=== PATIENT | female | born 1980 | race Caucasian/White ===

== ENCOUNTER 2018-09-03 11:30 | Outpatient (RCR) | payer OTHER, SELFPAY ==
--- NOTE | 2018-06-24 12:46 | HP.PTEVAL ---
Patient's Visit Information MICHAEL DOE is a 38 year old F referred to Physical Therapy by NGOC MCKAY with a diagnosis of L ACL reconstruction. Date of Evaluation: 06/24/18 Physical Therapist: Satnam Connelly - Visit Plan Frequency: 2x /Week Duration: 6 Weeks Plan: Start with quad strengthening, ROM, gait progression and progress per Garcia Protocol. May use ice + vaso for edema managment. - Subjective Subjective: Pt. is here today for her initial evaluation with a L ACL reconstruction 10 days ago. Pt. reports stepping wrong on a wt. while doing crossfit and felt her knee give way. 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 Pt. has yet to return to work, but plans on doing so next week. Pt. denies N/T in either LE. Pt. does arrive today with crutches no brace. Pt. reprots working on some exercises at home, but mimimal. Pt. does ahve increased edema, but expected. Pt. is hopeful to increase strength, decerase pain and get back to all recreational activities without increase in symptoms. - Pain L knee Pain Intensity (Out of 10): 3 Pain Intensity Range: 1, 5 L foot Pain Intensity (Out of 10): 0 Comment: Plantar fascitis - Objective POSTURE: Pt. is able to stand without AD. Pt. has increased RLE wt. shift in stance. Pt. lacks TKE in stance. PALPATION: Pt. has mild pain with palpation of medial joint line and patellar tendon. pt. has normal healing incision without signs of infection. Negative homans sign. NEURO- All intact without issues. 2+ DTR bilateral achilles and patellar DTRs. ROM: R knee 0-0-132deg. L knee AROM 0-5-102deg, PROM 0-2-108deg. Normal hip ROM, normal HS length. MMT: RLE 5/5 throughout; LLE- ankle 5/5 throughout; knee- ext- Pt. has slight extensor lag with SLR (no overpressure completed), ext 4/5, abd 4/5. Core strenght- fair-. GAIT: Pt. ambulates normal with crutches without issues. Pt. lacks TKE during L stance phase without use of crutches. Pt. is able to tolerate full wt. bearing at this point in time. Decreased step length bilaterally, R worse than L. STAIRS: step to pattern with use of BHR. - Goals Goal 1:: Pt. to be I with HEP. Goal Time Frame: 4-6 Weeks Goal 2:: Pt. to complete SLR x20 without extensor lag. Goal Time Frame: 4-6 Weeks Goal 3:: Pt. to ambulate with normalized gait pattern without use of AD for unlimited distances. Goal Time Frame: 4-6 Weeks Goal 4:: Pt. have atleast 0-0-120deg of L knee ROM allowing for increased tolerance to all functional mobility. Goal Time Frame: 4-6 Weeks Goal 5:: Pt. to negotiate steps with reciprocal pattern without increase in symptoms and use of 1 HR. Goal Time Frame: 4-6 Weeks - Rehabilitation Potential Physical Therapy Diagnosis: Pt. presents today with a L ACL reconstruction with subsequent L knee hypomobility, weakness, difficulty with gait and decreased overall mobility.Pt. would benefit from PT to improve above limitations progress back to all recreational and work activities without limitations. Rehabilitation Potential: Excellent - Anticipated Interventions Patient/Client Instruction: Educate patient on: Condition, Plan of Care, Risk Factors, Benefits of Fitness Program For the Purpose of:: To facilitate caregiver knowledge, To improve self management, To prevent re-injury, To improve ability to perform tasks related to life management, To improve tolerance to ADL's Therapeutic Exercise to Include: Strength training, Power training, Endurance training, Balance training, Coordination, Postural training, Flexibilty training, Gait and locomotor training, Passive ROM, Active ROM, Dynamic Lumbar Stabilization For the Purpose of:: To decrease pain, To decrease swelling/inflammation, To increase ROM, To improve nutrient delivery to tissue, To increase oxygenation perfusion, To improve muscle performance and motor function, To increase tolerance to activity/condition/position, To improve gait and locomotor functions, To improve health of tissue, To decrease soft tissue restriction, To increase flexibility/ROM, To improve endurance, To improve balance Manual Therapy Techniques to Include: Mobilization, Passive ROM, Functional dry needling, Soft tissue mobilization For the Purpose of:: To decrease pain, To decrease swelling/inflammation, To increase ROM, To improve nutrient delivery to tissue Other electric stimulation: Yes Cryotherapy (ice pack, ice massage): Yes Thermo therapy (hot pack): Yes Ultrasound (thermal/non thermal): Yes Vasopneumatic device: Yes For the Purpose of:: To decrease pain, To decrease swelling/inflammation, To increase ROM, To improve nutrient delivery to tissue Thank you for the opportunity to evaluate your patient. For Medicare and Medicare HMO plans, please review the plan of care and approve it. It will need to be FAXED BACK to us at [phone] for Medicare purposes. Please let me know if there are questions or concerns regarding this plan of care. Physician Signature: Date:
--- NOTE | 2018-08-20 06:30 | HP.PTREVAL_ITS ---
NGOC MCKAY, It has been my pleasure to treat MICHAEL DOE over the last 8 visits for L ACL reconstruction. Please see the progress note below for an update on the physical therapy plan of care! Subjective: Pt. saw her physician who was pleased with progress. Pt. reports no pain or issues this date. Objective/Function: ROM- 0-0-132deg. MMT: LLE- ankle 5/5 throughout; knee- flexion 4/5, ext 4/5; hip- flexion 4/5, abd 4/5, ext 4/5. gait- Pt. has normal gait pattern without pain, TKE achieve. Slight quad functional weaknss with descending steps. Pt. tolerated all Pt without adverse reaction. Pt. cotnniues to slow some musculare weakness, but has full knee motion. Plan Plan: Pt. to be seen weekly or everyother week to progress HEP for LE strengthening. FOcus on eccentric strengthening at this point in time. Goals Goal 1:: Pt. to be I with HEP. Goal Time Frame: 4-6 Weeks Goal 2:: Pt. to complete SLR x20 without extensor lag. Goal Time Frame: 4-6 Weeks Goal 3:: Pt. to ambulate with normalized gait pattern without use of AD for unlimited distances. Goal Time Frame: 4-6 Weeks Goal 4:: Pt. have atleast 0-0-120deg of L knee ROM allowing for increased tolerance to all functional mobility. Goal Time Frame: 4-6 Weeks Goal 5:: Pt. to negotiate steps with reciprocal pattern without increase in symptoms and use of 1 HR. Goal Time Frame: 4-6 Weeks Anticipated Interventions Patient/Client Instruction: Educate patient on: Condition, Plan of Care, Risk Factors, Benefits of Fitness Program For the Purpose of:: To facilitate caregiver knowledge, To improve self management, To prevent re-injury, To improve ability to perform tasks related to life management, To improve tolerance to ADL's Therapeutic Exercise to Include: Strength training, Power training, Endurance training, Balance training, Coordination, Postural training, Flexibilty training, Gait and locomotor training, Passive ROM, Active ROM, Dynamic Lumbar S tabilization For the Purpose of:: To decrease pain, To decrease swelling/inflammation, To increase ROM, To improve nutrient delivery to tissue, To increase oxygenation perfusion, To improve muscle performance and motor function, To increase tolerance to activity/condition/position, To improve gait and locomotor functions, To improve health of tissue, To decrease soft tissue restriction, To increase flexibility/ROM, To improve endurance, To improve balance Manual Therapy Techniques to Include: Mobilization, Passive ROM, Functional dry needling, Soft tissue mobilization For the Purpose of:: To decrease pain, To decrease swelling/inflammation, To increase ROM, To improve nutrient delivery to tissue Other electric stimulation: Yes Cryotherapy (ice pack, ice massage): Yes Thermo therapy (hot pack): Yes Ultrasound (thermal/non thermal): Yes Vasopneumatic device: Yes For the Purpose of:: To decrease pain, To decrease swelling/inflammation, To increase ROM, To improve nutrient delivery to tissue Please do not hesitate to contact me at [phone] by phone or if you have questions or concerns regarding this new plan of care! Sincerely, ANJANA JacobsonT
--- NOTE | 2018-09-03 18:05 | HP.PTREVAL ---
NGOC MCKAY, It has been my pleasure to treat MICHAEL DOE over the last 11 visits for L ACL reconstruction. Please see the progress note below for an update on the physical therapy plan of care! Subjective: Pt. is here today. She followed up with her physician about her patellar issues. Physician reports that she has patellar tendonitis. Physician wrote another script for Pt x2 per week for 8 weeks. Objective/Function: Pt. has full ROM of L knee without increas in symptoms. She does have increased tightness of quad musculature. Pt. has tenderness along patellar tendon. No medial or lateral joint pain. Pt. has no ligament laxity throughout her knee. Pt. does not appear to have any meniscal pain. MMT: L knee- flexion 5-/5, flexion 4+/5. L hip- flexion 4/5,abd 4+/5, ext 4+/5. GAIT: Pt. has normal gait pattern without increase in symptoms. STAIRS: PT. has slight functional weakness noted with descending steps. Plan Plan: Address L patellar tendonitis with US, quad stretching, ionto. Cont. to progress quad strengthening Goals Goal 1:: Pt. to be I with HEP. Goal Time Frame: 4-6 Weeks Goal Progress: Progressing Goal 2:: Pt. to complete SLR x20 without extensor lag. NEW GOAL: Pt. have 5/5 strength throughout LLE. Goal Time Frame: 4-6 Weeks Goal Progress: Progressing Goal 3:: Pt. to ambulate with normalized gait pattern without use of AD for unlimited distances. NEW GOAL: Pt. to run with normalized pattern without increase in symptoms. Goal Time Frame: 4-6 Weeks Goal Progress: Progressing Goal 4:: Pt. have atleast 0-0-120deg of L knee ROM allowing for increased tolerance to all functional mobility. Goal Time Frame: 4-6 Weeks Goal Progress: Goal Met Goal 5:: Pt. to negotiate steps with reciprocal pattern without increase in symptoms and use of 1 HR. Goal Time Frame: 4-6 Weeks Goal Progress: Progressing Goal 6:: Pt. to have decreased patellar tendon pain to 0-1/10 with all functional mobility. Anticipated Interventions Patient/Client Instruction: Educate patient on: Condition, Plan of Care, Risk Factors, Benefits of Fitness Program For the Purpose of:: To facilitate caregiver knowledge, To improve self management, To prevent re-injury, To improve ability to perform tasks related to life management, To improve tolerance to ADL's Therapeutic Exercise to Include: Strength training, Power training, Endurance training, Balance training, Coordination, Postural training, Flexibilty training, Gait and locomotor training, Passive ROM, Active ROM, Dynamic Lumbar Stabilization For the Purpose of:: To decrease pain, To decrease swelling/inflammation, To increase ROM, To improve nutrient delivery to tissue, To increase oxygenation perfusion, To improve muscle performance and motor function, To increase tolerance to activity/condition/position, To improve gait and locomotor functions, To improve health of tissue, To decrease soft tissue restriction, To increase flexibility/ROM, To improve endurance, To improve balance Manual Therapy Techniques to Include: Mobilization, Passive ROM, Functional dry needling, Soft tissue mobilization For the Purpose of:: To decrease pain, To decrease swelling/inflammation, To increase ROM, To improve nutrient delivery to tissue Other electric stimulation: Yes Cryotherapy (ice pack, ice massage): Yes Thermo therapy (hot pack): Yes Ultrasound (thermal/non thermal): Yes Vasopneumatic device: Yes For the Purpose of:: To decrease pain, To decrease swelling/inflammation, To increase ROM, To improve nutrient delivery to tissue Please do not hesitate to contact me at [phone] by phone or if you have questions or concerns regarding this new plan of care! Sincerely, Satnam Connelly DPT
--- NOTE | 2018-11-11 11:41 | HP.PT.NRP ---
HP - Discharge Summary (1) - Patient Information MICHAEL DOE was seen in my office for initial evaluation on 06/13/18. The following Plan of Care was established for this patient: Initial Frequency: 2x /Week Initial Duration: 6 Weeks - Anticipated Interventions Patient/Client Instruction: Educate patient on: Condition, Plan of Care, Risk Factors, Benefits of Fitness Program For the Purpose of:: To facilitate caregiver knowledge, To improve self management, To prevent re-injury, To improve ability to perform tasks related to life management, To improve tolerance to ADL's Therapeutic Exercise to Include: Strength training, Power training, Endurance training, Balance training, Coordination, Postural training, Flexibilty training, Gait and locomotor training, Passive ROM, Active ROM, Dynamic Lumbar Stabilization For the Purpose of:: To decrease pain, To decrease swelling/inflammation, To increase ROM, To improve nutrient delivery to tissue, To increase oxygenation perfusion, To improve muscle performance and motor function, To increase tolerance to activity/condition/position, To improve gait and locomotor functions, To improve health of tissue, To decrease soft tissue restriction, To increase flexibility/ROM, To improve endurance, To improve balance Manual Therapy Techniques to Include: Mobilization, Passive ROM, Functional dry needling, Soft tissue mobilization For the Purpose of:: To decrease pain, To decrease swelling/inflammation, To increase ROM, To improve nutrient delivery to tissue Other electric stimulation: Yes Cryotherapy (ice pack, ice massage): Yes Thermo therapy (hot pack): Yes Ultrasound (thermal/non thermal): Yes Vasopneumatic device: Yes For the Purpose of:: To decrease pain, To decrease swelling/inflammation, To increase ROM, To improve nutrient delivery to tissue This patient was last seen in our office 09/03/18. Pertinent comments regarding their Physical therapy will appear below: Pt. was treated for her ACL reconstruction. Pt. was doing well and progrssing with ROM and strengthening as exepcted. Pt. has not been seeen in ~2.5 months and will be DC from PT at this point intime. At this point I will be discontinuing this patient from physical therapy. I would be happy to see this patient again in the future if found appropriate by the physician. Thank you! Satnam Connelly DPT
== END 2018-09-03 19:00 | disposition home or self-care (01) ==
LOC: PT 11:30
DX: S83.512D Sprain of anterior cruciate ligament of left knee, subsequent encounter (principal)
CPT/HCPCS: 97016; 97110; 97161; 97530

== ENCOUNTER → 2019-01-09 15:03 | Outpatient (CLI) | payer OTHER, SELFPAY ==
[2019-01-09 17:24] LABS: Rubella IgG 272.2 IU/mL
[2019-01-13 11:50] LABS: HEPATITIS B SURFACE AG Negative (Negative); Mumps Antibody,IgG 68.6 AU/mL (Immune >10.9); V-Zoster IgG (Immunity) 277 index (Immune >165)
== END ==
DX: Z01.84 Encounter for antibody response examination (principal)
CPT/HCPCS: 36415; 86735; 86762; 86765; 86787; 87340

== ENCOUNTER → 2020-06-01 14:13 | Outpatient (CLI) | payer OTHER, SELFPAY ==
[2020-06-01 15:41] LABS: Free T3 2.9 pg/mL (2.18-3.98); T4 Free Direct 1.03 ng/dL (0.76-1.46)
[2020-06-08 16:08] LABS: Thyroxin Bind Glob (TBG) 15 ug/mL (13-39)
[2020-06-09 08:43] LABS: Anti-Thyroglobulin AB < 1.0 IU/mL (0.0-0.9); T3 Reverse 12.5 ng/dL (9.2-24.1); Thyroid Peroxidase AB < 9 IU/mL (0-34)
[2020-06-09 08:44] LABS: Thyroglobulin, Serum Qt. 4.5 ng/mL (1.5-38.5)
== END ==
DX: R53.83 Other fatigue (principal)
CPT/HCPCS: 36415; 82533; 84432; 84439; 84442; 84481; 84482; 86376; 86800

== ENCOUNTER → 2020-09-30 14:55 | Outpatient (CLI) | payer OTHER, SELFPAY ==
[2020-09-30 15:54] LABS: Progesterone Level 10.49 ng/mL (See Comment)
[2020-09-30 15:58] LABS: Estradiol 51.4 pg/mL; Follicle Stimulating Hormone 2.3 mIU/mL; Free T3 2.4 pg/mL (2.18-3.98); T4 Free Direct 0.84 ng/dL (0.76-1.46); Thyroid Stim Hormone (TSH) 1.23 uIU/mL (0.358-3.74)
== END ==
DX: R63.5 Abnormal weight gain (principal)
CPT/HCPCS: 36415; 82670; 83001; 84144; 84439; 84443; 84481

== ENCOUNTER 2021-06-09 15:30 | Outpatient (RCR) | payer OTHER, SELFPAY ==
--- NOTE | 2021-05-22 09:44 | HP.PTEVAL_ITS ---
Patient's Visit Information MICHAEL DOE is a 41 year old F referred to Physical Therapy by VERENA SORENSON with a diagnosis of Rt. Achilles Tendon strain, Achilles tendon resection. Date of Evaluation: 05/17/21 Physical Therapist: Satnam Connelly DPT - Visit Plan Frequency: 2x /Week Duration: 4 Weeks Plan: Start with light stretching, Active ROm progressing to strengthening. Once able to add in CKC strengthening in pain free movements. May add manual therapy to aid in tissue recovery and symptom management at plantar surface of calcaneus. - Subjective Pt. is here today for her initial evaluation with diagnosis of Rt. Achilles Tendon strain. She reports having surgery for an Achilles tendon resection with shaving down bone spurring of her calcaneus. Pt. arrives today in normal shoes without having major issues. She does report some slight pain at posterior calcaneus and at Achilles tendon. She reports walking without issues. Pt. denies N/T. Pt. reports having some stiffness with walking, but overall doing well. She is scheduled to have her L foot done in ~6 weeks. Pt. is also having a prophylactic masectomy before the end of the year. Pt. is hopeful to get back to all recreational activities which included power lifting without limitations. Pt. reports having 4/10 pain currently, mostly at the bottom of her heel, minimal pain at Achilles tendon. - Pain R heel Pain Intensity (Out of 10): 4 Pain Intensity Range: 0, 6 R Achilles Pain Intensity (Out of 10): 1 Pain Intensity Range: 0, 4 - Objective POSTURE: Pt. has good posture in stance. No lateral wt. shifting noted. Pt. is able to stand and bear wt. without AD. PALPATION: Pt. has well healed incision at Achilles and plantar fascia region. Pt. has increased tenderness at plantar surface of calcaneus, but minimal pain with rest of palpation. NEURO: normal throughout. ROM: R ankle: PF 47deg, DF 16deg, INV 16deg, EVR 16deg. Knee: normal ROM throughout. MMT: L ankle 5/5 throughout. R ankle: PF 4/5, DF 4+/5, INV 4/5, EVR 4+/5; knee 5-/5. hip: 5/5 throughout except 4/5 hip abd. GAIT: Pt. ambulates with slight antalgic pattern during R stance phase and pre swing phase on R side. - Balance/Special Test Scores Lower Extremity Functional Score: 63 - Goals Goal 1:: LTG: Pt. to be I with HEP. Goal Time Frame: 4-6 Weeks Goal 2:: STG: pt. to have increased ROM of R ankle to full with out increase in symptoms. Goal Time Frame: 2-4 Weeks Goal 3:: STG: Pt. to tolerate work day with 0-2/10 pain in R ankle. Goal Time Frame: 2-4 Weeks Goal 4:: LTG: pt. to ambulate unlimited distances without increase in symptoms with normalized gait pattern. Goal Time Frame: 4-6 Weeks Goal 5:: LTG: Pt. have increased R ankle strength to 5/5 throughout. Goal Time Frame: 4-6 Weeks Goal 6:: LTG: Pt. to negotiate 1 flight of steps without increase in symptoms with normal pattern and 0-1/10 pain in R ankle. Goal Time Frame: 4-6 Weeks - Rehabilitation Potential Physical Therapy Diagnosis: Pt. has signs and symptoms consistent with Achilles tendon resection. Pt. did have surgery for Achilles tendon resection. Pt. has subsequent hypomobility, weakness, difficulty with walking. Pt. would benefit from PT to address the above limitations in order to get back to all work and recreational activities without limitations. Rehabilitation Potential: Excellent - Anticipated Interventions Patient/Client Instruction: Educate patient on: Condition, Plan of Care, Risk Factors, Benefits of Fitness Program For the Purpose of:: To foster healthy habits, To improve decision making, To facilitate caregiver knowledge, To improve self management, To prevent re- injury, To improve ability to perform tasks related to life management, To improve tolerance to ADL's Therapeutic Exercise to Include: Strength training, Power training, Endurance training, Balance training, Coordination, Postural training, Flexibilty training, Gait and locomotor training, Passive ROM, Active ROM For the Purpose of:: To decrease pain, To increase ROM, To improve nutrient delivery to tissue, To increase oxygenation perfusion, To improve muscle performance and motor function, To improve ability to perform ADL's, To increase tolerance to activity/condition/position, To improve performance and independence with ADL's, To decrease level of supervision to perform tasks, To improve ability of physical actions for home/community/work/leisure, To improve gait and locomotor functions, To improve health of tissue, To decrease soft tissue restriction, To increase flexibility/ROM, To improve balance Manual Therapy Techniques to Include: Mobilization, Soft tissue mobilization For the Purpose of:: To decrease pain, To decrease swelling/inflammation, To increase ROM, To improve nutrient delivery to tissue Thank you for the opportunity to evaluate your patient. For Medicare and Medicare HMO plans, please review the plan of care and approve it. It will need to be FAXED BACK to us at [phone] for Medicare purposes. For Medicare only, by signing this I certify the plan of care. Please let me know if there are questions or concerns regarding this plan of care. Physician Signature: Date:
--- NOTE | 2021-06-12 13:54 | HP.PTDCSUM ---
It has been my pleasure to treat MICHAEL THORNTON LABOR referred by VERENA SORENSON, with the diagnosis of Rt. Achilles Tendon strain, Achilles tendon resection for a total of 7 visit(s). Discharge Date: 06/09/21 Please see the following information for a summary of their discharge status. Subjective: Pt. reports I am doing okay, still a little sore, but not too bad. Pt. is to have L Achilles surgery next week. She reports being 70% better overall. She is back to doing some gym related exercises,but avoiding quick forceful calf related activities. R heel Pain Intensity (Out of 10): 0 R Achilles Pain Intensity (Out of 10): 2 L achilles Pain Intensity (Out of 10): 4 % Improvement: 70 Objective/Function: Pt. did well with PT this date. Pt. has really good ROM, and 5-/5 strength. She still has some pain in her heel with initial contact. She still has the increased tissue at mid achilles tendon, but still has good strength. pt. still has slight antalgic gait pattern, bilaterally. Pt. has difficulty with heel raises as well. I would like her to continue to strengthening as she has her other surgery and will be non wbing on her LLE. Goal 1:: LTG: Pt. to be I with HEP. Goal Progress: Goal Met Goal 2:: STG: pt. to have increased ROM of R ankle to full with out increase in symptoms. Goal Progress: Goal Met Goal 3:: STG: Pt. to tolerate work day with 0-2/10 pain in R ankle. Goal Progress: Progressing Goal 4:: LTG: pt. to ambulate unlimited distances without increase in symptoms with normalized gait pattern. Goal Progress: Progressing Goal 5:: LTG: Pt. have increased R ankle strength to 5/5 throughout. Goal Progress: Progressing Goal 6:: LTG: Pt. to negotiate 1 flight of steps without increase in symptoms with normal pattern and 0-1/10 pain in R ankle. Goal Progress: Progressing Plan: Pt. to be DC from PT as she is having surgery on her L Achilles next week. Discharge Comments: Pt. will be DC from PT at this point in time. Pt. still has some increased pain and R calf weakness (5-/5). Pt. to work on eccentric exercises and banded exercises. Pt. consents. If there are questions or concerns regarding this patient's physical therapy, please feel free to call me at [phone]. Thank you for the referral of this patient. Sincerely, Satnam Connelly, ANJANAT Balance/Gait/Functional tests - Balance/Special Test Scores Lower Extremity Functional Score: 70
== END 2021-06-09 19:00 | disposition home or self-care (01) ==
LOC: PT 15:30
DX: S86.011D Strain of right Achilles tendon, subsequent encounter (principal)
CPT/HCPCS: 97035; 97110; 97140; 97161

== ENCOUNTER → 2022-02-23 | Outpatient (CLI) | payer OTHER, SELFPAY ==
[2022-02-23 11:10] LABS: Absolute Lymphocyte Count 2.35 X10^3/uL (0.83-4.51); Absolute Neutrophil Count 5.4 X10^3/uL (2.0-7.7); Basophil# 0.05 X10^3/uL; Basophil% 0.6 % (0-1); Eosinophil# 0.11 X10^3/uL; Eosinophils% 1.3 % (0-5); Hematocrit 38.5 % (37-47); Hemoglobin 12.1 g/dL (12.0-15.0); Lymphocyte # 2.35 X10^3/ul (0.83-4.51); Lymphocyte % 27.6 % (19-41); Mean Corp Hgb Conc 31.4 g/dL (32-36); Mean Corpuscular Hgb 25.2 pg (27.0-32.0); Mean Platelet Vol. 9.7 fl (6.2-12.0); Monocyte# 0.52 X10^3/uL; Monocyte% 6.1 % (0-10); NRBC Flagged by Analyzer 0 % (0-5); Neutrophil # 5.43 X10^3/uL (2.7-7.7); Neutrophil % 63.9 % (47-70); Platelet Count 308 K/mm3 (150-450); RBC Distribution Width CV 15.9 % (11.6-14.6); RBC Distribution Width SD 45.7 fl (35.1-43.9); Red Blood Count 4.81 M/mm3 (4.2-5.4); White Blood Count 8.5 K/mm3 (4.4-11.0)
[2022-02-23 11:16] LABS: Hemoglobin A1c 5.7 % (3.8-5.6)
[2022-02-23 11:19] LABS: AST(SGOT) 17 U/L (15-37); Alanine Aminotransfer ALT/SGPT 20 U/L (13-56); Albumin, Serum 3.4 g/dL (3.2-5.0); Alkaline Phosphatase 59 U/L (45-117); Anion Gap 5 (5-15); BUN 13 mg/dL (7-18); BUN/Creat Ratio 16.5 RATIO (10-20); Bilirubin, Direct 0.16 mg/dL (0.00-0.30); Calcium,Total 8.6 mg/dL (8.5-10.1); Chloride 106 mmol/L (98-107); Cholesterol 190 mg/dL (200); Creatinine, Serum 0.79 mg/dL (0.55-1.02); EST Glomerular Filtration Rate 84 mL/min (>60); Est Glom Filt Rate - Afr Amer 102 mL/min (>60); Globulin 3.7 g/dL (2.2-4.2); Glucose 83 mg/dL (74-106); High Density Lipoprotein 47 mg/dL; Potassium 3.9 mmol/L (3.5-5.1); Protein, Total 7.1 g/dL (6.4-8.2); Sodium Level 139 mmol/L (136-145); T4 Free Direct 0.91 ng/dL (0.76-1.46); Triglycerides 100 mg/dL; Very Low Density Lipoprotein 20 mg/dL (5-40)
== END | disposition home or self-care (01) ==
LOC: LAB 09:45
DX: Z13.220 Encounter for screening for lipoid disorders (principal); R73.9 Hyperglycemia, unspecified; R53.83 Other fatigue
CPT/HCPCS: 36415; 80048; 80061; 80076; 83036; 84439; 84443; 85025

== ENCOUNTER → 2023-05-28 | Outpatient (CLI) | payer OTHER, SELFPAY ==
--- NOTE | 2023-05-28 10:32 | BD_ITS ---
STUDY: DUAL ENERGY X-RAY ABSORPTIOMETRY / DXA REASON FOR EXAM: Female, 43 years old. V76.12ScreeningBONE DENSITY REASON FOR EXAM -- FOR OSTEOPOROSIS TECHNIQUE: Bone Mineral Density (BMD) measurements of lumbar spine and bilateral hips were obtained. COMPARISON: None. FINDINGS: Lumbar Spine (L1-L4): g/cm2 (1.195) / T-score (1.3) / Z-score (1.8) Findings are suggestive of normal bone density with a low fracture risk. Left Femur Total: g/cm2 (0.882) / T-score (-0.5) / Z-score (-0.2) Left Femoral Neck: g/cm2 (0.735) / T-score (-1.0) / Z-score (-0.6) Right Femur Total: g/cm2 (0.916) / T-score (-0.2) / Z-score (0.1) Right Femoral Neck: g/cm2 (0.721) / T-score (-1.2) / Z-score (-0.8) BD/Dexa Bone Density Study IMPRESSION: The patient is considered osteopenic as outlined below according to World Phillip Organization (WHO) criteria with a low fracture risk. Reference Information: The T-score is the number of standard deviations above or below the standard which is normal for young adults at their peak bone mineral density. The World Health Organization (WHO) interprets the T-scores as follows: Above -1 Normal bone density Between -1 and -2.5 Osteopenia Equal to / or below -2.5 Osteoporosis As a practical clinical guideline, osteopenia may be graded as follows: Mild -1 through -1.5 Moderate -1.6 through -2.0 Severe -2.1 through -2.4 The Z-score is the number of standard deviations above or below age-matched controls. A Z-score of less than -1.5 would be considered abnormal. References: 1. NIH Osteoporosis and Related Bone Diseases www osteo.org 2. International Society for Clinical Densitometry www iscd.org 3. National Osteoporosis Foundation www nof.org Electronically Signed: Brady Mayers MD at 8:40 EDT ,
== END | disposition home or self-care (01) ==
LOC: OPBD 10:25
DX: Z13.820 Encounter for screening for osteoporosis (principal)
CPT/HCPCS: 77080

== ENCOUNTER → 2023-05-29 | Outpatient (CLI) | payer SELFPAY | END | disposition home or self-care (01) | PROVIDERS: Visit Provider Family Medicine | DX: Z13.820 Encounter for screening for osteoporosis (principal) | CPT/HCPCS: 76499 ==

== ENCOUNTER 2023-07-26 09:43 | Day surgery (SDC) | payer OTHER, SELFPAY ==
[2023-07-26] VITALS (7 sets, daily range): BP systolic 87–101; BP diastolic 59–72; PULSE 68–79; RESP 14–18; TEMP 36.7–37; O2SAT 94–100; BMI 26.5
--- NOTE | 2023-07-26 09:50 | PCM.HP.BLA ---
History and Physical Date of Admission: 07/26/23 Visit Reasons: BLOOD CLOTS/RECTAL BLEEDING Chief Complaint: blood clots/ rectal bleeding Is patient in pain?: No Allergies No Known Allergies Allergy (Unverified 07/23/23 13:56) Medications thyroid (pork) 30 mg tablet ([place] Thyroid) 30 mg PO DAILY 07/23/23 [History Confirmed 07/23/23] tirzepatide (weight loss) 2.5 mg/0.5 mL subcutaneous pen injector 2.5 mg subcut QWEEK 07/23/23 [History Confirmed 07/23/23] [facility] Surgical History History of prophylactic mastectomy of both breasts Hx of exploratory laparotomy S/P ACL reconstruction Family History (Updated 07/23/23 @ 13:54 by Nhung Sheppard LPN) Mother Breast cancer Diabetes Thyroid disorderFather CancerGrandmother Cancer Diabetes Hypertension Social History (Updated 07/23/23 @ 13:55 by Nhung Sheppard LPN) Smoking Status: Former smoker alcohol intake: never substance use type: does not use HPI HPI HPI: 43-year-old female is being referred to assist with an episode of rectal bleeding with bright red blood and clots. She states about 3 weeks ago she had a significant urinary tract infection and she placed herself on Bactrim therapy. She then felt bloated full constipated. She had an episode where she had passing blood and clots per rectum. That was 1 spell. No particular pain with that. She then has developed some bilateral lower quadrant tenderness and she wonders whether she could additionally have [employer] endometrial disease. She has had previous history of endometriosis with laparoscopy 5 different times for ablation. First couple times were for pain and then the last couple times were to assist with fertility. Most recent episode was 2014. Since that time 2019 after she had multiple genetic markers she had prophylactic bilateral mastectomies with TRAM flap. She is to see her [facility] CALL CENTER REPRESENTATIVE in 2 days. She is not on any anticoagulant. 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 Works at [employer] and was to [place]. 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 ROS General General: No weight change, appetite, fatigue, colon cancer, breast cancer or weakness HEENT HEENT: No difficulty swallowing, eye injury, eye surgery, swollen glands or hoarseness Endo Endocrine: No thyroid disease, diabetes mellitus, thyroid cancer, Hair loss, heat intolerance or cold intolerance Skin Skin: No rash or changing moles Breast Breast: No left breast lump, right breast lump, nipple discharge, breast pain, abnormal mammogram, abnormal US or breast enlargement [facility] [place] Musculoskeletal: No back problems, arthritis, rheumatoid arthritis, gout or joint pain Cardio Cardiovascular: No murmur, pacemaker, heart disease, atrial fibrillation, high blood pressure, heart attack, heart stent, palpitations, shortness of breat with exertion or chest pain Psych Psychiatric: No depression, anxiety or hearing voices Resp Respiratory: No shortness of breath, No sleep apnea, No cough, No COPD, No asthma, No emphysema and No wheezing Gastro Gastrointestinal: No abdominal pain, No nausea or vomiting, Yes diarrhea, Yes constipation, Yes blood in stool, No acid reflux, Yes hemorrhoids, No ulcers, No gallbladder problem and No black,tarry stools [place] Hematologic: No blood thinners, No blood disorders, No bleeding, No anemia and No blood clots Neuro Neurologic: No system reviewed and no additional complaints, except as documented, No as per HPI, No abnormal gait, No abnormal hearing, No abnormal movements, No abnormal speech, No behavioral changes, No burning sensations, No confusion, No convulsions, No disequilibrium, No dizziness, No localized weakness, No frequent falls, No headache(s), No lack of coordination, No loss of vision, No memory loss, Yes numbness, No other visual disturbances, No radicular pain, No restless legs, No sensory deficit, No syncope, Yes tingling, No tremor(s), No weakness and No other Exam Const General: cooperative, healthy appearing, comfortable and no acute distress Nutritional Appearance: average body habitus Orientation: alert and awake Other: Multiple tattoos are noted [facility] Head: normal to inspection Eyes General: appearance normal, both eyes and all related structures Neck Neck: normal visual inspection Resp Effort & Inspection: normal respiratory effort Auscultation: clear to auscultation bilaterally Cardio Rate: regular rate Rhythm: regular rhythm GI Inspection: normal to inspection Other: Soft, minimal tenderness palpation, well-healed TRAM flap incision. No gross hepatosplenomegaly. Bowel sounds present unremarkable [facility] [place] Cervical Spine: normal cervical lordosis Neuro General: patient alert, patient awake and patient oriented x3 Extrem General: no calf tenderness Psych Appearance: grossly normal Assessment and Plan Assessment and Plan (1) Rectal bleeding: Status: Acute Plan: 43-year-old female with episode of rectal bleeding and clot. She does have a history of endometriosis. She is to see her [facility] CALL C[facility] REPRESENTATIVE in 2 days. There is no personal or family history of colon polyps or colon cancer. She has had no particular weight change. I propose for her colonoscopy with possible biopsy or polypectomy as indicated. We have discussed technique benefit risk complication alternatives. She has had an opportunity to ask and have questions answered. We will schedule and expedite her care. I appreciate the opportunity of assisting with her surgical management. Alexander Tejada M.D., F.A.C.S I have examined the patient and the H&P has been reviewed. There are no clinical changes since date of exam. Alexander Tejada M.D., F.A.C.S.
[2023-07-26] MEDS: Lactated Ringers 1,000 ML 15 ML IV (10:07)
[2023-07-26 10:14] LABS: Internal QC Validated? YES +Cl - CLEAR BKGD; Pregnancy, Urine Negative Negative
--- NOTE | 2023-07-26 11:00 | COLBX_PTH ---
PATIENT: MICHAEL DOE LOC: EN U#:[id number] AGE/SX: 43/F ROOM: RE07/26/[address]: Dr. Alexander Tejada MD : 1980 BED: DIS: 07/26/2023 SPEC #: [id number] RECD: 07/26/23 13:27 STATUS: JACKI JOHNNY #: [id number] [place]: 07/26/23 11:[address]: Alexander Tejada DEPT: SURGICAL PATHOLOGY RECD BY: Mery Mojica Tissues: Rectum, NOS Procedures: Surgery Specimen Level IV HEADER OPERATION: Colonoscopy with biopsy PRE-OP DIAGNOSIS: Rectal bleeding TISSUE SUBMITTED: Rectal polyp MICROSCOPIC DIAGNOSIS Rectal polyp, biopsy: Hyperplastic polyp. AM:raghu 07/30/2023 MICROSCOPIC DESCRIPTION Slides are reviewed. GROSS DESCRIPTION Received in fixative is one container labeled with the patient's name and designated rectal polyp. The specimen consists of two irregular fragments of light wells soft tissue that in aggregate measure 1.0 x 0.5 x 0.1 cm. The specimen is totally submitted in one cassette. / AM:raghu 07/26/2023 TC:5 CPT: 32396
--- NOTE | 2023-07-26 11:44 | OP.COLON_ITS ---
Patient Name: Yesica Allen Procedure Date: 07/26/2023 11:13 AM Date of : 1980 Age: 43 Procedure: Colonoscopy Indications: Rectal bleeding Providers: Alexander Tejada MD Medicines: See the Anesthesia note for documentation of the administered medications Patient Profile: Last Colonoscopy: none. The patient's first colonoscopy is today. Complications: No immediate complications. Procedure: Pre-Anesthesia Assessment: - Prior to the procedure, a History and Physical was performed, and patient medications and allergies were reviewed. The patient's tolerance of previous anesthesia was also reviewed. The risks and benefits of the procedure and the sedation options and risks were discussed with the patient. All questions were answered, and informed consent was obtained. Prior Anticoagulants: The patient has taken no anticoagulant or antiplatelet agents. ASA Grade Assessment: II - A patient with mild systemic disease. After reviewing the risks and benefits, the patient was deemed in satisfactory condition to undergo the procedure. After I obtained informed consent, the scope was passed under direct vision. Throughout the procedure, the patient's blood pressure, pulse, and oxygen saturations were monitored continuously. The colonoscope was introduced through the anus and advanced to the cecum, identified by appendiceal orifice and ileocecal valve. The colonoscopy was performed without difficulty. The patient tolerated the procedure well. The quality of the bowel preparation was good. The ileocecal valve and the appendiceal orifice were photographed. Scope In: 11:20:25 AM Scope Withdrawal Time 0 hours 11 minutes 30 seconds Scope Out: 11:37:23 AM Total Procedure Duration Time 0 hours 16 minutes 58 seconds Findings: The digital rectal exam findings include non-thrombosed internal hemorrhoids and internal hemorrhoids that prolapse with straining, but spontaneously regress to the resting position (Grade II). A 3 mm polyp was found in the rectum. The polyp was sessile. The polyp was removed with a cold biopsy forceps. Resection and retrieval were complete. A few diverticula were found in the sigmoid colon. The exam was otherwise without abnormality. Impression: - Non-thrombosed internal hemorrhoids and internal hemorrhoids that prolapse with straining, but spontaneously regress to the resting position (Grade II) found on digital rectal exam. - One 3 mm polyp in the rectum, removed with a cold biopsy forceps. Resected and retrieved. - Diverticulosis in the sigmoid colon. - The examination was otherwise normal. Recommendation: - Discharge patient to home. - Resume previous diet. - Continue present medications. - Repeat colonoscopy in 10 years for screening purposes. - Telephone my office for pathology results in 1 week I suspect the solitary episode of rectal bleeding was secondary to internal hemorrhoidal bleeding. I did not demonstrate any evidence of ongoing hemorrhage and no evidence of an endometrial disease.. Procedure Code(s): --- Professional --- 90586, Colonoscopy, flexible; with biopsy, single or multiple Diagnosis Code(s): --- Professional --- K64.1, Second degree hemorrhoids D12.8, Benign neoplasm of rectum K62.5, Hemorrhage of anus and rectum K57.30, Diverticulosis of large intestine without perforation or abscess without bleeding CPT copyright 2021 [employer]. All rights reserved. The codes documented in this report are preliminary and upon human capital manager review may be revised to meet current compliance requirements. Alexander Tejada MD 07/26/2023 11:43:58 AM This report has been signed electronically. Number of Addenda: 0 Note Initiated On: 07/26/2023 11:13 AM
== END 2023-07-26 12:28 | disposition home or self-care (01) ==
LOC: EN 09:45 → AC 09:46
PROVIDERS: Anesthesiology; Visit Provider Surgery
PROC: 0DJD8ZZ Inspection of Lower Intestinal Tract, Via Natural or Artificial Opening Endoscopic (ICD-10-PCS; CPT 45378; principal; 2023-07-26 10:55)
DX: K57.30 Diverticulosis of large intestine without perforation or abscess without bleeding (principal); K62.1 Rectal polyp; K64.1 Second degree hemorrhoids; K62.5 Hemorrhage of anus and rectum; Z87.891 Personal history of nicotine dependence
CPT/HCPCS: 45380; 81025; 88305; J7120; J2405

== ENCOUNTER 2024-03-04 13:00 | Outpatient (RCR) | payer OTHER, SELFPAY ==
--- NOTE | 2024-02-27 09:51 | HP.PTEVAL ---
Patient's Visit Information Visit Information Visit Information: MICHAEL DOE is a 44 year old F referred to Physical Therapy by Donald Álvarez PA-C with a diagnosis of Lumbar radiculopathy. Date of Evaluation: 02/26/24 Physical Therapist: Satnam Connelly DPT Visit Plan Frequency: 1x/Week Duration: 4 Weeks Plan: Start with extension progression. Work on end range extension as long as symptoms continue to centralize. Once abolished add in neutral spine core stability. Subjective Subjective: Pt. is here today for her initial evaluation with diagnosis of sprain of ligaments of lumbar spine, lumbar radiculopathy. Pt. reports a few weeks ago she work up with pain in her back that was going down her R leg all the way down to her toes. She believes it was from heavier lifting. Pt. reports being put on a steroid which did help, but started to come back after she came off the steroid. Pt. is overall much better than she was initially, but does still have pain that starts in her back and radiates into her R buttock. Pt. has not gone back to lifting LEs, but has done some upper body exercises. She reports no N/T, no changes in B&B, and no myotomal weakness. 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 At this point in time she reports that her biggest issue is with getting up after prolonged sitting or going to sit after prolonged standing. She always has some symptoms, but those movements seem to make it worse. Pt. is hopeful to reduce symptoms in order to get back to all recreational and gym exercises without limitations. Pain Lumbar spine: Pain Intensity (Out of 10): 2 Pain Intensity Range: 0 and 6 Comment: R sided R gluteal region: Pain Intensity (Out of 10): 1 Pain Intensity Range: 4 Objective Objective: POSTURE: Pt. has decent posture in stance. Pt. has no marked lateral shift noted. No marked flexed posture noted. PALPATION: Pt. did not have any marked pain with spring testing of her lumbar spine. No hypomobility noted throughout lumbar spine. PT. has normal B hip ROM without increase in symptoms, Normal HS length. NEURO: Pt. has normal sensation in BLEs. Normal DTR noted bilaterally. Pt. is able rise on heels and toes without issues. ROM: LUMBAR SPINE: flexion min/nil loss mild increase NW, ext min loss NE, SB nil loss bilat NE, rotation nil loss bilat NE. Pt. has normal SH length without increase in symptoms. Normal hip ROM noted. MMT: Pt. has good strength throughout BLEs and core without increase in symptoms. Pt. has good contraction of TA with LE testing. GAIT: normal without issues noted. PT. does have some increased pain at R lumbar spine and R gluteal region with transitions from sitting to standing and vise versa. Special Tests L/S Slump test left side: Negative L/S Slump test right side: Positive L/S Left Straight Leg Raise: Positive L/S Right Straight Leg Raise: Positive Lumbar Lying: Flexion - Mechanical Response: No effect Lumbar Lying: Flexion - Symptoms During Testing: No effect Lumbar Lying: Flexion - Symptoms After Testing: No effect Lumbar Lying: Extension - Mechanical Response: Increases motion Lumbar Lying: Extension - Symptoms During Testing: Centralizing Lumbar Lying: Extension - Symptoms After Testing: Better Balance/Special Test Scores Oswestry Low Back Score: 10 Goals Goal 1:: LTG: Pt. to be I with HEP for lumbar ROM and core stability. Goal Time Frame: 4-6 Weeks Goal 2:: LTG: Pt. to have increased lumbar extension by 25% without increase in symptoms. Goal Time Frame: 4-6 Weeks Goal 3:: STG: Pt. to have pain centralized to lumbar spine. Goal Time Frame: 2 Weeks Goal 4:: LTG: Pt. to complete all daily activities including prolonged standing and sitting without increase in symptoms. Goal Time Frame: 4-6 Weeks Goal 5:: LTG: Pt. to get back to all gym exercises without increase in lumbar spine pain. Goal Time Frame: 4-6 Weeks Rehabilitation Potential Physical Therapy Diagnosis: Pt. has signs and symptoms consistent with R sided lumbar radiculopathy. Pt. has mech consistent with discogenic involvement, she had a + SLR and + slump test on the R side. She also appeared to have a directional preference with extension. Pt. would benefit from PT to work on extension progression to reduce radicular symptoms and progression of core stability to reduce stress on lumbar spine with all lifting and gym exercises. Rehabilitation Potential: Excellent Anticipated Interventions Patient/Client Instruction: Educate patient on: Condition, Plan of Care, Risk Factors and Benefits of Fitness Program For the Purpose of:: To facilitate caregiver knowledge, To improve self management, To prevent re-injury, To improve ability to perform tasks related to life management and To improve tolerance to ADL's Therapeutic Exercise to Include: Strength training, Power training, Flexibilty training, Passive ROM, Active ROM, Dynamic Lumbar Stabilization and Milagros Exercises For the Purpose of:: To decrease pain, To decrease swelling/inflammation, To increase ROM, To improve nutrient delivery to tissue, To increase oxygenation perfusion, To improve muscle performance and motor function, To improve gait and locomotor functions, To improve health of tissue, To decrease soft tissue restriction, To increase flexibility/ROM and To improve endurance Text: Thank you for the opportunity to evaluate your patient. For Medicare and Medicare HMO plans, please review the plan of care and approve it. It will need to be FAXED BACK to us at [phone] for Medicare purposes. For Medicare only, by signing this I certify the plan of care. Please let me know if there are questions or concerns regarding this plan of care. Physician Signature: Date:
== END 2024-03-04 19:00 | disposition home or self-care (01) ==
LOC: PT 13:00
PROVIDERS: Referring Provider Physician Assistant; Visit Provider Physician Assistant
DX: S33.5XXD Sprain of ligaments of lumbar spine, subsequent encounter (principal); M54.16 Radiculopathy, lumbar region
CPT/HCPCS: 97161

== ENCOUNTER → 2024-04-08 | Outpatient (CLI) | payer OTHER, SELFPAY ==
--- NOTE | 2024-04-08 12:55 | MRI_ITS ---
STUDY: MRI LUMBAR SPINE WITHOUT CONTRAST REASON FOR EXAM: Female, 44 years old. sprain, low back pain TECHNIQUE: Standardized fat and water weighted pulse sequences were obtained in the sagittal and axial planes. COMPARISON: None FINDINGS: T12-L1: Normal endplates. Normal disc height, hydration and morphology. Normal bilateral facet joints. Normal central canal and bilateral lateral recesses. Normal bilateral intervertebral neural foramina. Normal lumbar lordosis. There is no substantial scoliosis. Normal conus medullaris that terminates at T12-L1 L1-2: Normal endplates. Normal disc height, hydration and morphology. Normal bilateral facet joints. Normal central canal and bilateral lateral recesses. Normal bilateral intervertebral neural foramina. L2-3: Normal endplates. Normal disc height, hydration and morphology. Normal bilateral facet joints. Normal central canal and bilateral lateral recesses. Normal bilateral intervertebral neural foramina. L3-4: Normal endplates. Normal disc height, desiccation and minimal annular bulge.. Mild facet arthropathy. Normal central canal and bilateral lateral recesses. Mild bilateral neural foraminal encroachment. L4-5: Normal endplates. Normal disc height, desiccation and central/left paracentral annular tear and small bilateral foraminal disc protrusions slightly larger on the right. Facet arthropathy.. Normal central canal and bilateral lateral recesses. Severe right neural foraminal stenosis and moderate stenosis on the left. L5-S1: Normal endplates. Normal disc height, desiccation and moderate annular bulge with left paracentral/posterolateral disc protrusion impinging upon the descending S1 nerve roots worse on the right. Minor facet arthropathy. Mild narrowing of the central canal. Bilateral lateral recesses. Moderate bilateral neural foraminal stenosis Normal visualized sacral ala. Normal visualized paraspinous soft tissue structures. MRI/Spine Lumbar (Routine) IMPRESSION: No evidence for acute fracture or other significant bone pathology.. Disc degeneration and spinal stenosis secondary to disc disease and bony hypertrophy at L3-4, more severe at L4-5 greater on the right and bilateral at L5-S1 Findings as above Electronically Signed: Young Nation MD at 16:34 EDT ,
== END | disposition home or self-care (01) ==
LOC: MRI 12:51
PROVIDERS: Referring Provider Physician Assistant; Visit Provider Physician Assistant
DX: S33.5XXA Sprain of ligaments of lumbar spine, initial encounter (principal); M54.50 Low back pain, unspecified; M54.16 Radiculopathy, lumbar region
CPT/HCPCS: 72148

== ENCOUNTER 2024-09-29 15:39 | Outpatient (CLI) | payer SELFPAY | END 2024-09-29 23:59 | disposition home or self-care (01) | DX: Z00.00 Encounter for general adult medical examination without abnormal findings (principal) | CPT/HCPCS: 76499 ==